=== PATIENT | male | born 1950 | race Caucasian/White ===

== ENCOUNTER 2020-05-23 08:50 | Observation (INO) | payer MEDICARE ==
[2020-05-19 09:46] VITALS: BP 170/73
[2020-05-19 13:35] LABS: BASOPHILS % (AUTO) 0.5 % (0.0-5.0); EOSINOPHILS % (AUTO) 4.6 % (0.0-8.0); LYMPHOCYTES % (AUTO) 25.2 % (21.0-51.0); MEAN CORPUSCULAR HEMOGLOBIN 28.8 pg (27.0-33.0); MEAN CORPUSCULAR HGB CONC 30.9 g/dL (32.0-36.0); MEAN CORPUSCULAR VOLUME 93.4 fL (79-99); MONOCYTES % (AUTO) 7.6 % (3.0-13.0); NEUTROPHILS % (AUTO) 61.8 % (40.0-77.0); PLATELET COUNT (AUTO) 136 K/uL (130-400); RED BLOOD CELL COUNT(AUTO) 4.82 MIL/uL (4.50-6.20); WHITE BLOOD COUNT (AUTO) 7.4 K/uL (4.8-10.8)
[2020-05-19 13:36] LABS: APPEARANCE,URINE Clear (CLEAR); BILIRUBIN,URINE Negative (NEGATIVE); COLOR,URINE Yellow (YELLOW); GLUCOSE, URINE (UA) >=1000 mg/dL (NEGATIVE); KETONES,URINE Negative (NEGATIVE); LEUKOCYTE ESTERASE ,URINE Negative (NEGATIVE); NITRATE,URINE Negative (NEGATIVE); OCCULT BLOOD,URINE Negative (NEGATIVE); PROTEIN,URINE Negative (NEGATIVE); UROBILINOGEN,URINE 0.2 mg/dL (0.2-1.0)
[2020-05-19 13:53] LABS: CREATININE 1.4 mg/dL (0.5-1.5); POTASSIUM 4.6 mmol/L (3.5-5.1)
[2020-05-19 13:54] LABS: INR 1.02 (0.85-1.15); PARTIAL THROMBOPLASTIN TIME 27.9 SEC (26.3-35.5)
[2020-05-19 14:19] LABS: BACTERIA,URINE Rare /HPF (None Seen); RBC,URINE 0-1 /HPF (0-1); SQUAMOUS EPITHELIAL CELL,UR Rare /HPF (0-2); WBC,URINE 0-1 /HPF (0-1)
--- NOTE | 2020-05-22 10:00 | NUR ---
MEENA MOTT FOR DR HAMMOND NOTIFIED OF ABNORMAL CREAT LEVEL. NO NEW ORDERS RECEIVED. TIERA ALSO INFORMED OF ABNORMAL EKG RESULTS SHOWING A FIB. ASKED TO FAX RESULTS TO OFFICE. TRYED MULTIPLE TIMES BUT LINE IS BUSY, WILL CONTINUE TO TRY.
[~2020-05-23] VITALS: Ht 175.3 cm; Wt 120.5 kg
[~2020-05-23 08:50] MED LIST: AEC81 PO; EMPA25TA PO; GABA300C PO; HYDR-4060 PO; ICOS1CAP PO; ISOS30TA6 PO; LISI10TA7 PO; METO-391 PO; NITR0.4T50 SL; OMEP40CA13 PO; OXYM15MI2 NS; PIOG15TA66 PO; ROSU20TA31 PO; SODIUM CHLORIDE 0.9% 500ML 500 ML IV SCH; TAMS-1 PO; TRAZ-185 PO; ZOLP10TA2 PO
[2020-05-23] MEDS ORDERED: SODIUM CHLORIDE 0.9% 1000ML 1,000 ML IV ONE ×2 (08:58→13:42)
[2020-05-23 09:20] VITALS: BP 183/81
--- NOTE | 2020-05-23 09:20 | NUR ---
PRE OP PT ARRIVED AMBULATORY IN NO DISTRESS. PT ORIENTED TO ROOM AND CALL LIGHT. PT HAS ABRASIONS TO RT ARM AND TOP OF HEAD FROM [place]. PT ALSO HAS HYPERPIGMENTATION TO SWATI LOWER EXTREMITIES. WILL CONTINUE TO MONITOR PT.
--- NOTE | 2020-05-23 09:25 | NUR ---
ASSESSMENT PT HAS LARGE RT ABDOMINAL HERNIA. R
--- NOTE | 2020-05-23 10:15 | NUR ---
REPORT REPORT GIVEN TO AYUSH RN FROM DAY PT FOR CONTINUATION OF CARE.
[2020-05-23 12:20] VITALS: BP 154/75
[2020-05-23] MEDS ORDERED: SODIUM BICARB 50MEQ 50ML VIAL ONE (13:06)
[2020-05-23] MEDS ORDERED: NITROGLYCERIN 2 MG/VIAL VIAL IV ONE (13:06)
[2020-05-23] MEDS ORDERED: IOHEXOL 350 MG/ML 100ML INFUS..BTL IV ONE ×2 (13:06→13:18)
[2020-05-23] MEDS ORDERED: HEPARIN SODIUM 1000UNIT/ML 10ML VIAL ONE (13:06)
[2020-05-23] MEDS ORDERED: NICARDIPINE HCL 25 MG/10 ML ML IV ONE (13:06)
[2020-05-23] MEDS ORDERED: FENTANYL CITRATE PF 50 MCG/1 ML 2ML VIAL ONE (13:07)
[2020-05-23] MEDS ORDERED: LIDOCAINE HCL 2% 20ML ONE (13:07)
[2020-05-23] MEDS ORDERED: MIDAZOLAM HCL 1 MG/ML 2ML VIAL ONE ×2 (13:07→14:24)
[2020-05-23] MEDS ORDERED: BIVALIRUDIN 250 MG/VIAL IV ONE (13:14)
[2020-05-23] MEDS ORDERED: ATROPINE SULFATE 0.1 MG/ML 10 ML SYG IVP ONE ×3 (13:58→16:47)
[2020-05-23] MEDS ORDERED: CLOPIDOGREL BISULFATE 300 MG TAB ONE (14:30)
[2020-05-23] MEDS ORDERED: ASPIRIN 325MG EC TAB 325 MG TABLET.DR PO ONE (15:13)
[2020-05-23] MEDS ORDERED: PHARMACY COMMUNICATION MISC SCH (15:15)
[2020-05-23] MEDS ORDERED: LIDOCAINE HCL 2% VISCOUS 30 ML, MAG HYDROX/AL HYDROX/SIMETH 30 ML, DICYCLOMINE HCL 20 MG PO SCH ×3 (15:45)
--- NOTE | 2020-05-23 16:40 | NUR ---
TRANSFER FROM PACU NOW TO ROOM 332.S/P LT HEART CATH. TR BAND IN PLACE TO RT. WRIST.STARTED ON NS AT 100 ML/HR.
[2020-05-23] MEDS ORDERED: ATROPINE SULFATE 0.1 MG/ML 10 ML SYG IVP PRN (16:45)
--- NOTE | 2020-05-23 16:50 | NUR ---
HEART RATE DROPPED TO THE 3O ATROPINE IV GIVEN BY CHARGE NURSE SHAHAB.
[2020-05-23] MEDS ORDERED: NITROGLYCERIN 0.4 MG SL TAB SL SCH (17:00)
[2020-05-23] MEDS ORDERED: SODIUM CHLORIDE 0.9% 1000ML 1,000 ML IV SCH (17:00)
[2020-05-23] MEDS ORDERED: TRAZODONE HCL 50 MG TAB PO PRN (17:00)
[2020-05-23] MEDS ORDERED: HYDROCODONE/ACETAMINOPHEN 5/325 MG TAB PO PRN (17:00)
[2020-05-23] MEDS ORDERED: SODIUM CHLORIDE 0.9% 10 ML VIAL IVP PRN (17:00)
[2020-05-23] MEDS ORDERED: ZOLPIDEM TARTRATE 5 MG TAB PO PRN (17:00)
--- NOTE | 2020-05-23 17:15 | NUR ---
STARTED TO DEFLATE TR BAND BY 2 ML NOW WILL CONTINUE Q 15 MIN. UNTIL 15 ML OF AIR ARE REMOVED.
[2020-05-23 17:31] LABS: CREATINE KINASE, TOTAL 41 U/L (21-232); MYOGLOBIN 55 ng/mL (10-92)
--- NOTE | 2020-05-23 18:20 | NUR ---
PERSONAL BELONGINGS RETURNED BY SECURITY
--- NOTE | 2020-05-23 18:45 | NUR ---
TR BAND NOW REMOVED. NO BLEEDING, BRUISING OR SWELLING NOTED
[2020-05-23 20:35] VITALS: BP 109/42
[2020-05-23] MEDS: ATORVASTATIN CALCIUM 40 MG TABLET PO SCH (21:10)
[2020-05-23] MEDS: GABAPENTIN 300 MG CAPSULE PO SCH (21:10)
[2020-05-23] MEDS: OXYMETAZOLINE HCL SPRAY 15 ML BOTTLE NS SCH (21:12)
[2020-05-24 06:34] VITALS: BP 101/67
[2020-05-24 06:50] LABS: TROPONIN I 0.22 ng/mL (0.00-0.06)
[2020-05-24] MEDS ORDERED: CLOPIDOGREL BISULFATE 75 MG TAB PO SCH (09:00)
[2020-05-24] MEDS ORDERED: ASPIRIN 81MG TAB.CHEW PO SCH (09:00)
[2020-05-24] MEDS: **HM**(Empagliflozin (Jardiance) 25 MG PO SCH (09:00)
[2020-05-24 10:03] LABS: CREATININE 1.3 mg/dL (0.5-1.5); POTASSIUM 4.7 mmol/L (3.5-5.1)
[2020-05-24] MEDS: CLOPIDOGREL BISULFATE 75 MG TAB PO SCH (10:17)
[2020-05-24 10:18] LABS: TROPONIN I 0.24 ng/mL (0.00-0.06)
[2020-05-24] MEDS: ISOSORBIDE MONO 30MG TAB SR PO SCH (10:18)
[2020-05-24] MEDS: GABAPENTIN 300 MG CAPSULE PO SCH ×3 (10:18→21:43)
[2020-05-24] MEDS: ASPIRIN 81 MG EC TAB PO SCH (10:18)
[2020-05-24] MEDS: TAMSULOSIN HCL 0.4 MG CAP.ER.24H PO SCH (10:18)
[2020-05-24] MEDS: PIOGLITAZONE HCL 15 MG TAB PO SCH (10:19)
[2020-05-24] MEDS: LISINOPRIL 10 MG TABLET PO SCH (10:19)
[2020-05-24] MEDS: OXYMETAZOLINE HCL SPRAY 15 ML BOTTLE NS SCH ×2 (10:20→21:43)
[2020-05-24 12:00] VITALS: BP 127/64
[2020-05-24] MEDS: PANTOPRAZOLE SODIUM 40 MG TABLET.DR PO SCH ×2 (14:38→14:39)
[2020-05-24 16:00] VITALS: BP 111/46
--- NOTE | 2020-05-24 16:47 | NUR ---
ROXANNE NOTE/IA UNABLE TO MEET WITH PATIENT IN ROOM, NEXT OF KIN CALLED, GARY MEDINA. PER SPOUSE, PATIENT LIVES WITH HER AND FAMILY, INDEPENDENT WITH ADLS, NO USE OF DME OR PROVIDER SERVICES, AND FEELS SAFE FOR PATIENT TO RETURN HOME ONCE DISCHARGED. Addendum: 05/24/20 at 1649 by PHU SHORT RN CM Amended: Links added.
[2020-05-24] MEDS ORDERED: PANTOPRAZOLE SODIUM 40 MG TABLET.DR PO SCH (17:00)
[2020-05-24 20:27] VITALS: BP 105/45
[2020-05-24] MEDS: ATORVASTATIN CALCIUM 40 MG TABLET PO SCH (21:43)
[2020-05-24 23:33] VITALS: BP 126/56
[2020-05-25 05:22] VITALS: BP 144/69
[2020-05-25 09:24] VITALS: BP 182/84
[2020-05-25] MEDS: CLOPIDOGREL BISULFATE 75 MG TAB PO SCH (09:27)
[2020-05-25] MEDS: GABAPENTIN 300 MG CAPSULE PO SCH (09:27)
[2020-05-25] MEDS: ASPIRIN 81 MG EC TAB PO SCH (09:28)
[2020-05-25] MEDS: TAMSULOSIN HCL 0.4 MG CAP.ER.24H PO SCH (09:28)
[2020-05-25] MEDS: LISINOPRIL 10 MG TABLET PO SCH (09:28)
[2020-05-25] MEDS: ISOSORBIDE MONO 30MG TAB SR PO SCH (09:28)
[2020-05-25] MEDS: PIOGLITAZONE HCL 15 MG TAB PO SCH (09:29)
[2020-05-25] MEDS: OXYMETAZOLINE HCL SPRAY 15 ML BOTTLE NS SCH (09:29)
[2020-05-25] MEDS: **HM**(Empagliflozin (Jardiance) 25 MG PO SCH (09:29)
--- NOTE | 2020-05-25 11:53 | NUR ---
DISCHARGE INSTRUCTIONS GIVEN TO PATIENT, MADE AWARE OF NEW RX FOR ASPIRIN, PLAVIX AND ATORVASTATIN. MADE AWARE TO STOP METOPROLOL AND ROUSVASTATIN. INSTRUCTED TO FOLLOW UP WITH PCP PATIENT STATED HE HAS APPOINTMENT SET FOR NEXT FRIDAY WITH DR. FISH JOHNSON. MADE AWARE OF FOLLOW UP APPOINTMENT WITH DR. HAMMOND JUNE 05. PATIENT AT THIS TIME DENIES ANY CHEST PAIN OR SHORTNESS OF BREATH. IV AND TELE REMOVED.
[2020-05-25 12:17] VITALS: BP 149/63
--- NOTE | 2020-05-25 12:51 | NUR ---
ON 05/24 @ [id number] Patient signed KING Letter, I faxed KING Letter to [id number] and placed in chart under consent tab.
== END 2020-05-25 12:35 | disposition home or self-care (01) ==
LOC: DAH 08:50 → 4AH 08:51 → DAH 08:51
PROVIDERS: ADMIT Internal Medicine Cardiovascular Disease; ATTEND Internal Medicine Cardiovascular Disease
DX: R07.89 Other chest pain (principal); R16.0 Hepatomegaly, not elsewhere classified; K76.0 Fatty (change of) liver, not elsewhere classified
CPT/HCPCS: 36415 ×3; 71045; 76700; 80048 ×2; 81001; 82550 ×3; 82948 ×8; 83874 ×3; 83880; 84484 ×3; 85025; 85610; 85730; 93005 ×5; 93454; 96374; A4215; A4216; A4221; A4222; A4223 ×3; A4606; A4663; C1725; C1769 ×2; C1874 ×2; C1887 ×6; C1894 ×3; C9600; C9601; G0378 ×17; J0461 ×2; J1644 ×2; J2250 ×2; J3010; J3490 ×4; J7030 ×3; Q9965 ×3; Q9967 ×2; 99156; 99157; J0583

== ENCOUNTER → 2023-12-09 | Outpatient (CLI) | payer MEDICARE ==
[~2023-12-09] MED LIST changes: -ICOS1CAP PO; -ISOS30TA6 PO; +ISOS30TA92 PO; +LISI10TA24 PO; -LISI10TA7 PO; -METO-391 PO; -OMEP40CA13 PO; +OMEP40CA21 PO; -ROSU20TA31 PO; -SODIUM CHLORIDE 0.9% 500ML 500 ML IV SCH
[2023-12-09 12:07] LABS: BASOPHILS # (AUTO) 0.03 K/uL (0.00-0.20); BASOPHILS % (AUTO) 0.6 % (0.0-5.0); EOSINOPHILS # (AUTO) 0.11 K/uL (0.00-0.70); EOSINOPHILS % (AUTO) 2.2 % (0.0-8.0); IMMATURE GRANULOCYTE ABSOLUTE 0.01 K/uL (0-1); LYMPHOCYTES # (AUTO) 1.1 K/uL (1.0-4.8); LYMPHOCYTES % (AUTO) 20.8 % (21.0-51.0); MEAN CORPUSCULAR HEMOGLOBIN 29.1 pg (27.0-33.0); MEAN CORPUSCULAR HGB CONC 30.8 g/dL (32.0-36.0); MEAN CORPUSCULAR VOLUME 94.6 fL (79-99); MONOCYTES # (AUTO) 0.4 K/uL (0.1-1.0); MONOCYTES % (AUTO) 8.5 % (3.0-13.0); NEUTROPHILS # (AUTO) 3.4 K/uL (1.8-7.7); NEUTROPHILS % (AUTO) 67.7 % (40.0-77.0); PLATELET COUNT (AUTO) 97 K/uL (130-400); RED BLOOD CELL COUNT(AUTO) 4.23 MIL/uL (4.50-6.20); RED CELL DISTRIBUTION WIDTH 13.6 % (11.0-15.5); WHITE BLOOD COUNT (AUTO) 5.1 K/uL (4.8-10.8)
[2023-12-09 12:38] LABS: ALBUMIN 3.6 g/dL (3.5-5.0); BILIRUBIN,TOTAL 0.5 mg/dL (0.2-1.0); CREATININE 1.7 mg/dL (0.5-1.3); POTASSIUM 5.1 mmol/L (3.5-5.1); TOTAL PROTEIN, SERUM 6.7 g/dL (6.0-8.3)
== END | disposition home or self-care (01) ==
LOC: LAB 10:44
PROVIDERS: ATTEND Internal Medicine Cardiovascular Disease
DX: R00.1 Bradycardia, unspecified (principal); E78.2 Mixed hyperlipidemia
CPT/HCPCS: 36415; 80053; 80061; 85025